=== PATIENT | female | born 1990 | race Caucasian/White ===

== ENCOUNTER 2022-11-20 08:34 | Outpatient (CLI) | payer BC, SELFPAY | END 2022-11-20 08:35 | disposition home or self-care (01) | LOC: AMB 11-25 12:42 | PROVIDERS: Visit Provider Emergency Medicine Emergency Medical Services | DX: O60.14X0 Preterm labor third trimester with preterm delivery third trimester, not applicable or unspecified (principal); Z3A.21 21 weeks gestation of pregnancy | CPT/HCPCS: A0425; A0426; A0428 ==